=== PATIENT | female | born 1955 | race Caucasian/White ===

== ENCOUNTER 2020-01-04 12:24 | Outpatient (CLI) | payer OTHER, SELFPAY ==
[2020-01-05 14:04] LABS: SARS-CoV-2 RNA PCR Negative
== END 2020-01-04 12:25 | disposition home or self-care (01) ==
LOC: CHSLAB 12:28
PROVIDERS: PCP Family Medicine; Visit Provider Family Medicine
DX: Z20.828 Contact with and (suspected) exposure to other viral communicable diseases (principal)
CPT/HCPCS: 87635; C9803; U0003

== ENCOUNTER → 2020-01-30 06:55 | Outpatient (CLI) | payer OTHER, SELFPAY ==
--- NOTE | ~2020-01-30 | MM_ITS ---
EXAMINATION: MM screening [facility] BI w gunner HISTORY: Screening mammogram TECHNIQUE: Craniocaudal and mediolateral oblique 3-D tomosynthesis images were obtained and synthetic 2-D images were generated. CAD analysis was submitted and interpreted. COMPARISON: 09/05/2009, 03/28/2008 BREAST PARENCHYMAL COMPOSITION: The breasts are almost entirely fatty. FINDINGS: RIGHT BREAST: There is no evidence of suspicious mass, calcification, or architectural distortion to suggest malignancy. There has been no significant interval change. LEFT BREAST: An asymmetry is present in the anterior third of the breast on the craniocaudal view. IMPRESSION: 1. Left breast asymmetry. 2. Additional mammographic views and possible breast ultrasound are recommended. BI-RADS Category 0: Incomplete: Needs additional imaging evaluation. Reviewed, dictated and finalized at location A. WORKER IMPRESSION: 1. Left breast asymmetry. 2. Additional mammographic views and possible breast ultrasound are recommended . BI-RADS Category 0: Incomplete: Needs additional imaging evaluation.
--- NOTE | ~2020-01-30 | DEXA_ITS ---
Bone Density Report Name: Melita Durán Age: 64 Sex: Female Ethnicity: White Date of : 1955 Indication: postmenopausal; screening for osteoporosis; height loss; asthma or emphysema; Referring Provider: AXEL UP Study: Bone densitometry was performed. Exam Date: January 30, 2020 Accession number: [id number] Bone Density: Region BMD T-score Z-score Classification AP Spine (L1-L4) 1.319 2.5 4.2 Normal Femoral Neck (Left) 0.696 -1.4 0.1 Osteopenia Total Hip (Left) 0.910 -0.3 1.0 Normal Femoral Neck (Right) 0.669 -1.6 -0.1 Osteopenia Total Hip (Right) 0.913 -0.2 1.0 Normal Total Hip Mean 0.912 -0.3 1.0 Normal World Health Organization criteria for BMD impression classify patients as: Normal (T-score at or above -1.0), Osteopenia (T-score between -1.0 and -2.5), or Osteoporosis (T-score at or below -2.5). 10-year Fracture Risk(1): Major Osteoporotic Fracture 11% Hip Fracture 1.5% Reported Risk Factors: [place] (), Neck BMD=0.669, BMI=31.8, alcohol use (1) FRAX(R) Version 3.08. Fracture probability calculated for an untreated patient. Fracture probability may be lower if the patient has received treatment. Clinical Information Provided by Patient: Has 3 or more alcoholic drinks per day Has used the following medications: Vitamin D, MTV Has the following medical conditions: Asthma or Emphysema Patient maximum height was 68 Menopause Age: 57 No regular weight bearing exercise Onset of menses at age 10 Number of children 3 Impression: The patient has low bone mass, based on the Right Femoral Neck T-score. The patient has an estimated ten-year risk of hip fracture of 1.5% and an estimated ten-year risk of major fracture of 11%, based on the WHO FRAX algorithm. The patient has risk factors, including: excessive alcohol use. Discussion: BONE DENSITY IS LOW AT ONE OR MORE SKELETAL SITES. This patient's lowest T-score is low at one or more skeletal sites. It meets the World Health Organization's (WHO) criteria for ?low bone mass? (T-score between -1.0 and -2.5). The patient's 10-year risk of fracture as calculated by FRAX is less than the threshold where pharmacological therapy is recommended by the National Osteoporosis Foundation (NOF). However, all treatment decisions require clinical judgment and consideration of individual patient factors, including patient preferences, comorbidities, previous drug use, risk factors not captured in the FRAX model (e.g., frailty, falls, vitamin D deficiency, increased bone turnover, interval significant decline in bone density) and possible under or overestimation of fracture risk by FRAX. The patient should follow a healthful lifestyle (good nutrition with adequate calcium and vitamin D, and appropriate weight-bearing exercise). Casandra
== END ==
PROVIDERS: PCP Family Medicine; Visit Provider Obstetrics & Gynecology Gynecology
DX: Z12.31 Encounter for screening mammogram for malignant neoplasm of breast (principal); Z78.0 Asymptomatic menopausal state; R92.8 Other abnormal and inconclusive findings on diagnostic imaging of breast; M85.852 Other specified disorders of bone density and structure, left thigh; M85.851 Other specified disorders of bone density and structure, right thigh
CPT/HCPCS: 77063; 77067; 77080

== ENCOUNTER → 2020-02-23 08:19 | Outpatient (CLI) | payer OTHER, SELFPAY ==
--- NOTE | ~2020-02-23 | MM_ITS ---
EXAMINATION: MM diagnostic mammo unilat LT HISTORY: Left breast asymmetry on screening mammogram TECHNIQUE: Additional 3-D tomosynthesis images of the left breast were performed and synthetic 2-D im ages were generated. CAD analysis was submitted and interpreted. COMPARISON: 01/30/2020, 09/05/2009, 03/28/2008 FINDINGS: No persistent asymmetry is identified with spot compression of the left breast. There is no suspicious mass, calcification, or architectural distortion. IMPRESSION: 1. No mammographic evidence of malignancy. 2. Recommend routine screening mammography in one year. BI-RADS Category 1: Negative Reviewed, dictated and finalized at location A. VERY HELPER
== END ==
PROVIDERS: PCP Family Medicine; Visit Provider Obstetrics & Gynecology Gynecology
DX: R92.8 Other abnormal and inconclusive findings on diagnostic imaging of breast (principal)
CPT/HCPCS: 77065

== ENCOUNTER 2020-02-23 12:37 | Outpatient (CLI) | payer OTHER, SELFPAY ==
[2020-02-23 12:55] LABS: Basophils Absolute Auto 0.05 K/mm3 (0.00-0.10); Basophils Percent Auto 0.6 % (0.0-1.0); Eosinophils Absolute Auto 0.19 K/mm3 (0.02-0.50); Eosinophils Percent Auto 2.4 % (1.0-6.0); Hematocrit 38.6 % (35.0-42.0); Hemoglobin 12.2 g/dL (11.7-13.8); Immature Granulocyte Absolute 0.04 K/mm3 (0.00-0.00); Immature Granulocyte Percent A 0.5 % (0.0-0.0); Lymphocytes Absolute Auto 2.23 K/mm3 (1.10-4.50); Lymphocytes Percent Auto 28.2 % (18.0-42.0); Mean Corpuscular HGB Conc 31.6 g/dL (32.0-36.0); Mean Corpuscular Volume 88.7 fL (78.0-102.0); Mean Platelet Volume 11.4 fl (9.2-11.8); Monocytes Absolute Auto 0.46 K/mm3 (0.10-0.90); Monocytes Percent Auto 5.8 % (2.0-11.0); Neutrophils Absolute Auto 4.9 K/mm3 (1.7-7.2); Neutrophils Percent Auto 62.5 % (50.0-70.0); Platelet Count Result 283 K/mm3 (150-420); Red Blood Count 4.35 M/mm3 (4.20-5.40); Red Cell Distribution Width 13.4 % (11.6-14.4); White Blood Count 7.9 K/mm3 (4.8-10.8)
[2020-02-23 13:03] LABS: Creatinine Urine 49.79 mg/dL (40-278); MALB Creatinine Ratio 26.1 mg/g (0-30); Microalbumin Urine Random < 13.0 mg/L
[2020-02-23 13:41] LABS: Alanine Aminotransferase 74 U/L (14-59); Albumin Level 4.1 g/dL (3.4-5.0); Alkaline Phosphatase 117 U/L (46-116); Anion Gap 5 mmol/L (8-16); Aspartate Amino Transferase 39 U/L (15-37); Bilirubin,Total 0.4 mg/dL (0.00-1.00); Blood Urea Nitrogen 20 mg/dL (7-18); Calcium 9.3 mg/dL (8.5-10.1); Carbon Dioxide 31 mmol/L (21-32); Chloride 101 mmol/L (98-108); Creatine Kinase 262 U/L (26-192); Estimated Glomerular Filt Rate > 60; Glucose 95 mg/dL (70-99); Osmolality Calculated 286 mOsm/kg (285-295); Potassium 4.4 mmol/L (3.5-5.1); Sodium 137 mmol/L (136-145); Thyroid Stimulating Hormone 2.47 uIU/mL (0.36-3.74); Troponin I 9.3 ng/L (0.00-60.4)
== END 2020-02-23 12:38 | disposition home or self-care (01) ==
PROVIDERS: PCP Family Medicine; Visit Provider Family Medicine
DX: R03.0 Elevated blood-pressure reading, without diagnosis of hypertension (principal); R94.31 Abnormal electrocardiogram [ECG] [EKG]; R00.2 Palpitations
CPT/HCPCS: 36415; 80053; 82043; 82550; 82553; 84443; 84484; 85025; 93225; 93226

== ENCOUNTER → 2020-11-27 07:52 | Outpatient (CLI) | payer MEDICARE, OTHER, SELFPAY ==
--- NOTE | ~2020-11-27 | MMUS_ITS ---
EXAMINATION: MM diagnostic addy LT w gunner, US breast LT limited HISTORY: Palpable left breast abnormality TECHNIQUE: Additional 3-D tomosynthesis images of the left breast were performed and synthetic 2-D im ages were generated. CAD analysis was submitted and interpreted. High resolution Limited left breast ultrasound was performed. COMPARISON: Comparison to multiple prior studies sequentially, with oldest reviewed study dated 10/16. BREAST PARENCHYMAL COMPOSITION: Breast composed of scattered areas of fibroglandular density. FINDINGS: MAMMOGRAPHIC FINDINGS: There are no suspicious masses, calcifications or architectural distortion in the left breast to sugg est malignancy. ULTRASOUND: Limited left breast ultrasound: At 2-3 o'clock in the area of palpable concern there is a 8 mm cyst. No suspicious masses to suggest malignancy. IMPRESSION: 1. No mammographic or sonographic evidence for malignancy in the left breast. 8 mm cyst corresponds t o the palpable abnormality. 2. Routine yearly screening mammogram and regular clinical breast examination are recommended. BI-RADS Category 2: Benign finding(s). Reviewed, dictated and finalized at location A. IMPRESSION: 1. No mammographic or sonographic evidence for malignancy in the left breast. 8 mm cyst corresponds to the palpable abnormality. 2. Routine yearly screening mammogram and regular clinical breast examination a re recommended. BI-RADS Category 2: Benign finding(s).
== END ==
PROVIDERS: Visit Provider Obstetrics & Gynecology Gynecology
DX: N64.4 Mastodynia (principal)
CPT/HCPCS: 76642; 77061; 77065; G0279

== ENCOUNTER 2021-03-22 01:24 | Day surgery (SDC) | payer MEDICARE, OTHER, SELFPAY ==
[2021-03-12 16:08] VITALS: BMI 30.4
--- NOTE | 2021-03-21 16:24 | WPDANESEPP ---
Anes - Eval Pre Procedure Procedure: Operation Date: 03/22/21 08:30 Proposed Procedures p Screening Colonoscopy - Cholo Latham MD Date/Time: 03/21/21 16:24 Pre Op Diagnosis: family hx of colon ca Patient Data Age: 65 Gender: F Height: 1.73 m Weight: 91 kg Allergies Allergy/AdvReac Type Severity Reaction Status Date / Time No Known Allergies Allergy Verified 12/03/20 09:35 Home Medications Medication Instructions Recorded Confirmed Type aspirin 81 mg tablet,delayed 81 mg PO DAILY 03/08/19 03/12/21 History release magnesium oxide 400 mg PO DAILY 03/08/19 03/12/21 History multivitamin with iron-mineral 1 tablet PO DAILY 03/08/19 03/12/21 History omeprazole 40 mg capsule,delayed 40 mg PO DAILY 03/08/19 03/12/21 History release paroxetine HCl 10 mg tablet 10 mg PO DAILY 01/30/20 03/12/21 History inhalational spacing device #10 ea 08/30/20 12/03/20 Rx losartan 25 mg tablet 25 mg PO DAILY 12/03/20 03/12/21 History tiotropium bromide 2.5 See Rx Instructions .ROUTE 01/22/21 03/12/21 Rx mcg/actuation mist for inhalation .COMPLEX #4 gram ergocalciferol (vitamin D2) 03/12/21 History fluticasone propionate [Flovent INHALATION 03/12/21 History HFA] Patient hx anesthesia problems: none Family hx anesthesia problems: none Results Review: All pre-operative results and documents have been reviewed as part of the pre-operative evaluation. [facility] Past Medical History Medical History (Updated 03/21/21 @ 16:26 by Margaret Jean-Baptiste CRNA) Arthritis Back pain Gastroesophageal reflux disease HTN (hypertension) Mild asthma Surgical History Surgical History (Updated 03/21/21 @ 16:26 by Margaret Jean-Baptiste CRNA) History of partial hysterectomy S/P cervical spinal fusion S/P rotator cuff surgery Family History Family History Other Carcinoma of colon Social History Social History Smoking packs per day: 0.5 Smoking cigarettes per day: 10.0 Years smoked: 20 Smoking pack-years: 10.00 Smoking status: Former smoker Tobacco type: cigarettes Smoking end date: 02/16/87 Alcohol intake: current Drinks per week: 14 Substance use: unknown Spiritual care concerns: No Exam Day of Procedure 03/21/21 16:24
[2021-03-22] MEDS: LACTATED RINGERS 1,000 ML 150 ML IV CONT (07:29)
[2021-03-22 07:32] VITALS: BP 150/75; PULSE 85; RESP 18; TEMP 36.3; O2SAT 98
--- NOTE | 2021-03-22 08:00 | WPDANESEFPP ---
Anes - Eval Final PreProcedure Day of Procedure 03/22/21 08:00 Patient weight: obese Heart: regular rate and rhythm Lungs: clear to auscultation Airway: Mallampati scale class II Neurological: alert and oriented Last oral intake: >/= 8 hours ASA classification: III Emergent: no Anesthetic plan: proceed Anesthesia type and monitoring: general GIVS and standard monitoring Results Review: All pre-operative results and documents have been reviewed as part of the pre-operative evaluation. Informed Consent: The patient's anesthetic plan and its attendant risks and benefits were discussed with the patient/family/POA. Questions were solicited and answers provided to the satisfaction of the patient/family/POA.
--- NOTE | 2021-03-22 08:13 | PM.HPGS ---
History of Present Illness History of Present Illness Consent: Risks, benefits, and alternatives have been discussed and questions answered. Patient agrees to proceed with procedure. Chief complaint: family hx of colon ca Narrative: Melita Durán is a 65 year old female with last colonoscopy ~ 4 years ago, mother had colon cancer. Review of Systems Constitutional: Constitutional: Denies headache(s) and Denies weakness Eyes: Eyes: Denies blurry vision ENT: Reports Normal hearing present, Denies headache(s) and Denies neck pain Cardiovascular: Cardiovascular: Denies chest pain and Denies dyspnea Respiratory: Respiratory: Denies dyspnea Gastrointestinal: Gastrointestinal: Reports no additional gastrointestinal complaints Genitourinary: Genitourinary: Denies dysuria Musculoskeletal: Musculoskeletal: Denies neck pain Integumentary/Breasts: Skin/Breast: Denies dry skin Neurologic: Reports Normal hearing present, Denies headache(s) and Denies weakness Psychiatric: Psychiatric: Denies anxiety Endocrine: Endocrine: Denies change in body appearance Hematologic/Lymphatic: Hematologic/Lymphatic: Denies easy bleeding Allergic/Immunologic: Allergic/Immunologic: Denies urticaria PMFSH Past Medical History Medical History (Updated 03/22/21 @ 08:14 by Cholo Latham MD) Arthritis Back pain Family history of colon cancer in mother Gastroesophageal reflux disease HTN (hypertension) Mild asthma Surgical History Surgical History (Updated 03/21/21 @ 16:26 by Margaret Jean-Baptiste CRNA) History of partial hysterectomy S/P cervical spinal fusion S/P rotator cuff surgery Family History Family History Other Carcinoma of colon Social History Social History Smoking packs per day: 0.5 Smoking cigarettes per day: 10.0 Years smoked: 20 Smoking pack-years: 10.00 Smoking status: Former smoker Tobacco type: cigarettes Smoking end date: 02/16/87 Alcohol intake: current Drinks per week: 14 Substance use: unknown Living arrangements: with family Spiritual care concerns: No Meds Home Medications and Allergies Home Medications Medication Instructions Recorded Confirmed Type aspirin 81 mg tablet,delayed 81 mg PO DAILY 03/08/19 03/12/21 History release magnesium oxide 400 mg PO DAILY 03/08/19 03/12/21 History multivitamin with iron-mineral 1 tablet PO DAILY 03/08/19 03/12/21 History omeprazole 40 mg capsule,delayed 40 mg PO DAILY 03/08/19 03/12/21 History release paroxetine HCl 10 mg tablet 10 mg PO DAILY 01/30/20 03/12/21 History inhalational spacing device #10 ea 08/30/20 12/03/20 Rx losartan 25 mg tablet 25 mg PO DAILY 12/03/20 03/12/21 History tiotropium bromide 2.5 See Rx Instructions .ROUTE 01/22/21 03/12/21 Rx mcg/actuation mist for inhalation .COMPLEX #4 gram ergocalciferol (vitamin D2) 03/12/21 History fluticasone propionate [Flovent INHALATION 03/12/21 History HFA] Allergies Allergy/AdvReac Type Severity Reaction Status Date / Time latex Allergy Redness of Verified 03/22/21 07:32 Skin Vital Signs Vital Signs - 24 hr 03/22/21 07:32 Temperature 97.3 F L Pulse Rate 85 Respiratory Rate 18 Blood Pressure 150/75 H Pulse Oximetry 98 Exam Const: General: comfortable and no acute distress HENMT: General nose exam: Normal nares present Eyes: General: appearance normal, both eyes and all related structures Neck: Neck: no JVD Resp: Auscultation: clear to auscultation bilaterally Cardio: Rate: regular rate Rhythm: regular rhythm GI: Inspection: non-distended GI Palp: Yes Soft to palpation Skin: General skin exam: normal color Neuro: General: gait normal Speech: normal speech Extrem: General: normal to inspection Psych: Mental Status: mental status grossly normal Assessment and Plan Assessment and pl
[2021-03-22 08:37] VITALS: BP 144/70; PULSE 73; RESP 19; O2SAT 98
[2021-03-22 08:47] VITALS: BP 125/62; PULSE 74; RESP 11; O2SAT 99
[2021-03-22 08:59] VITALS: BP 144/70; PULSE 71; RESP 20; O2SAT 99
== END 2021-03-22 09:15 | disposition home or self-care (01) ==
PROVIDERS: PCP Family Medicine; Visit Provider Internal Medicine Gastroenterology
PROC: 0DJD8ZZ Inspection of Lower Intestinal Tract, Via Natural or Artificial Opening Endoscopic (ICD-10-PCS; CPT 45378; principal; 2021-03-22 08:30)
DX: Z12.11 Encounter for screening for malignant neoplasm of colon (principal); D12.2 Benign neoplasm of ascending colon; K63.5 Polyp of colon; K57.30 Diverticulosis of large intestine without perforation or abscess without bleeding; K64.8 Other hemorrhoids; Z80.0 Family history of malignant neoplasm of digestive organs; I10 Essential (primary) hypertension; J45.909 Unspecified asthma, uncomplicated; K21.9 Gastro-esophageal reflux disease without esophagitis; Z79.82 Long term (current) use of aspirin; Z79.51 Long term (current) use of inhaled steroids; Z98.1 Arthrodesis status; Z87.891 Personal history of nicotine dependence
CPT/HCPCS: 45385; 88305; J2704; J7120

== ENCOUNTER → 2021-06-07 15:59 | Outpatient (CLI) | payer MEDICARE, OTHER, SELFPAY ==
--- NOTE | ~2021-06-07 | MM_ITS ---
EXAMINATION: MM screening [facility] BI w gunner HISTORY: Screening TECHNIQUE: Craniocaudal and mediolateral oblique 3-D tomosynthesis images were obtained and synthetic 2-D images were generated. CAD analysis was submitted and interpreted. COMPARISON: Comparison to multiple prior studies sequentially, with oldest reviewed study dated 10/16. BREAST PARENCHYMAL COMPOSITION: The breasts are almost entirely fatty. FINDINGS: There is a new mass inferiorly in the right breast on MLO view, most posterior margin. The left breast is stable without evidence for malignancy. IMPRESSION: 1. New right breast mass inferiorly and posteriorly seen on MLO view only. 2. Additional mammographic views and possible breast ultrasound are recommended. BI-RADS Category 0: Incomplete: Needs additional imaging evaluation. Reviewed, dictated and finalized at location A. IMPRESSION: 1. New right breast mass inferiorly and posteriorly seen on MLO view only. 2. Additional mammographic views and possible breast ultrasound are recommended . BI-RADS Category 0: Incomplete: Needs additional imaging evaluation.
== END ==
PROVIDERS: PCP Family Medicine; Visit Provider Obstetrics & Gynecology Gynecology
DX: Z12.31 Encounter for screening mammogram for malignant neoplasm of breast (principal); R92.8 Other abnormal and inconclusive findings on diagnostic imaging of breast
CPT/HCPCS: 77063; 77067

== ENCOUNTER → 2021-06-19 08:20 | Outpatient (CLI) | payer MEDICARE, OTHER, SELFPAY ==
--- NOTE | ~2021-06-19 | MM_ITS ---
EXAMINATION: MM diagnostic addy RT w gunner HISTORY: New posteriorly inferior right breast mass seen on screening MLO view of June 07, 2021 TECHNIQUE: Rolled medial craniocaudal and coned compression MLO views of the skin mole with skin sabina er at the lower posterior medial aspect of the breast were performed and synthetic 2-D images were ge nerated. CAD analysis was submitted and interpreted. COMPARISON: June 07, 2021 bilateral screening mammogram FINDINGS: The small masses reported on June 07, 2021 MLO screening view is circumscribed, measuring approximately 3.8 x 6 mm, corresponding to a skin marker at a skin mole IMPRESSION: 1. Skin mole accounts for opaque density noted on June 07, 2021 MLO screening view; no mammographic evidence of malignancy 2. Routine mammographic screening is recommended. BI-RADS Category 2: Benign finding(s). Reviewed, dictated and finalized at location A.
== END ==
PROVIDERS: PCP Family Medicine; Visit Provider Obstetrics & Gynecology Gynecology
DX: R92.8 Other abnormal and inconclusive findings on diagnostic imaging of breast (principal)
CPT/HCPCS: 77061; 77065; G0279

== ENCOUNTER 2022-06-16 15:09 | Outpatient (CLI) | payer MEDICARE, OTHER, SELFPAY ==
--- NOTE | ~2022-06-16 | XR_ITS ---
EXAMINATION: XR chest 2V Exam Date/Time: 06/16/2022 15:35 CDT HISTORY: PRODUCTIVE COUGH 2 WEEKS. SOB WITH ACUTE COUGHING. Comparison: 08/26/2018. RESULT: Lines, tubes, and devices: ACDF. Bilateral humeral head soft tissue anchors. Lungs and pleura: Clear. Cardiomediastinal silhouette: Stable. Other: No acute osseous or upper abdominal finding. IMPRESSION: No acute cardiopulmonary process. Reviewed, dictated and finalized at location K.
== END 2022-06-16 15:10 | disposition home or self-care (01) ==
LOC: CHSIMG 15:10
PROVIDERS: PCP Family Medicine; Visit Provider Family Medicine
DX: R05.2 Subacute cough (principal)
CPT/HCPCS: 71046

== ENCOUNTER → 2022-10-14 15:35 | Outpatient (CLI) | payer MEDICARE, OTHER, SELFPAY ==
--- NOTE | ~2022-10-14 | MM_ITS ---
EXAMINATION: MM screening [facility] BI w gunner HISTORY: Screening mammogram TECHNIQUE: Craniocaudal and mediolateral oblique 3-D tomosynthesis images were obtained and synthetic 2-D images were generated. CAD analysis was submitted and interpreted. COMPARISON: 06/07/2021, 11/27/2020, 01/30/2020 BREAST PARENCHYMAL COMPOSITION:The breasts are almost entirely fatty FINDINGS: Small bilateral circumscribed low-density nodules are stable from prior exam. No suspicious mass, calcification, or architectural distortion are identified in either breast to suggest malignan cy. There has been no suspicious interval change. IMPRESSION: No mammographic evidence of malignancy. Recommend routine screening mammography in one year. BI-RADS Category 2: Benign finding(s). Reviewed, dictated and finalized at location .
--- NOTE | ~2022-10-14 | DEXA_ITS ---
Bone Density Report Name: ALISON CRAIG Age: 66 Sex: Female Ethnicity: White Date of : 1955 Indication: postmenopausal; screening for osteoporosis; height loss; asthma or emphysema; Referring Provider: AXEL UP Study: Bone densitometry was performed. Exam Date: October 14, 2022 Accession number: [id number] Bone Density: Region BMD T-score Z-score Classification AP Spine (L1, L4) 1.210 1.6 3.5 Normal Femoral Neck (Left) 0.702 -1.3 0.3 Osteopenia Total Hip (Left) 0.934 -0.1 1.3 Normal Femoral Neck (Right) 0.669 -1.6 0.0 Osteopenia Total Hip (Right) 0.912 -0.2 1.1 Normal Total Hip Mean 0.923 -0.2 1.2 Normal World Health Organization criteria for BMD impression classify patients as: Normal (T-score at or above -1.0), Osteopenia (T-score between -1.0 and -2.5), or Osteoporosis (T-score at or below -2.5). 10-year Fracture Risk(1): Major Osteoporotic Fracture 9.2% Hip Fracture 1.2% Reported Risk Factors: [place] (), Neck BMD=0.669, BMI=33.7 (1) FRAX(R) Version 3.08. Fracture probability calculated for an untreated patient. Fracture probability may be lower if the patient has received treatment. Previous Exams: Region Exam Age BMD T-score BMD Change BMD Change Date g/cm2 vs Baseline vs Previous AP Spine(L1, L4) 10/14/2022 66 1.210 1.6 -0.085* -0.085* 01/30/2020 64 1.294 2.3 Total Hip(Left) 10/14/2022 66 0.934 -0.1 0.024 0.024 01/30/2020 64 0.910 -0.3 Total Hip(Right) 10/14/2022 66 0.912 -0.2 0.000 0.000 01/30/2020 64 0.913 -0.2 *Denotes significance at 95% confidence level, LSC for AP Spine = 0.022 g/cm2, LSC for Total Hip = 0.027 g/cm2 Clinical Information Provided by Patient: Has used the following medications: Vitamin D, MTV Has the following medical conditions: Asthma or Emphysema Patient maximum height was 68 Menopause Age: 57 No regular weight bearing exercise Onset of menses at age 10 Number of children 3 Impression: The patient has low bone mass, based on the Right Femoral Neck T-score. The patient has an estimated ten-year risk of hip fracture of 1.2% and an estimated ten-year risk of major fracture of 9.2%, based on the WHO FRAX algorithm. The BMD for the AP Spine(L1, L4) decreased, changing by -0.085 since the last DXA exam. Discussion: BONE DENSITY IS LOW AT ONE OR MORE SKELETAL SITES. This patient's lowest T-score
== END ==
PROVIDERS: PCP Obstetrics & Gynecology Gynecology; Visit Provider Obstetrics & Gynecology Gynecology
DX: Z12.31 Encounter for screening mammogram for malignant neoplasm of breast (principal); Z78.0 Asymptomatic menopausal state; M85.852 Other specified disorders of bone density and structure, left thigh; M85.851 Other specified disorders of bone density and structure, right thigh
CPT/HCPCS: 77063; 77067; 77080

== ENCOUNTER 2022-12-19 11:10 | Outpatient (CLI) | payer MEDICARE, OTHER, SELFPAY ==
[2022-12-19 11:58] LABS: SARS-CoV-2 RNA PCR Negative (Negative)
== END 2022-12-19 11:11 | disposition home or self-care (01) ==
LOC: CHSLAB 11:12
PROVIDERS: PCP Family Medicine; Visit Provider Family Medicine
DX: J06.9 Acute upper respiratory infection, unspecified (principal); Z20.822 Contact with and (suspected) exposure to COVID-19
CPT/HCPCS: 87635

== ENCOUNTER 2023-01-20 02:05 | Day surgery (SDC) | payer MEDICARE, OTHER, SELFPAY ==
[2023-01-05 10:35] VITALS: BMI 31.4
--- NOTE | 2023-01-16 11:41 | SUR.PREOP ---
Patient called regarding upcoming procedure. Reviewed preop instructions, appointment times, and procedure prep.
[2023-01-20 06:21] VITALS: BP 153/81; PULSE 72; RESP 16; TEMP 36.1; O2SAT 96; BMI 34.0
[2023-01-20] MEDS: LACTATED RINGERS 1,000 ML 150 ML IV CONT (06:29)
--- NOTE | 2023-01-20 07:22 | WPDANESEPPF ---
Anes - Initial Pre Proc Eval Procedure: Operation Date: 01/20/23 07:30 Proposed Procedures p Esophagogastroduodenoscopy - Cholo Latham MD Date/Time: 01/20/23 07:22 Surgeon: Cholo Latham MD Pre Op Diagnosis: GERD, Dysphagia Patient Data Age: 67 Gender: F Height: 1.7 m Weight: 98.7 kg Last Vital Signs Temp 97 F L 01/20/23 06:21 Pulse 72 01/20/23 06:21 Resp 16 01/20/23 06:21 BP 153/81 H 01/20/23 06:21 Pulse Ox 96 01/20/23 06:21 O2 Del Method Room Air 01/20/23 06:21 Allergies Allergy/AdvReac Type Severity Reaction Status Date / Time latex AdvReac Redness of Verified 01/20/23 06:17 Skin Home Medications Medication Instructions Recorded Confirmed Type aspirin 81 mg tablet,delayed 81 mg PO DAILY 03/08/19 01/20/23 History release magnesium oxide 400 mg PO DAILY 03/08/19 01/20/23 History multivitamin with iron-mineral 1 tablet PO DAILY 03/08/19 01/20/23 History ergocalciferol (vitamin D2) 1,250 1,250 mcg PO WEEKLY 03/12/21 01/20/23 History mcg (50,000 unit) capsule metoprolol succinate 25 mg 25 mg PO DAILY 11/22/21 01/20/23 History tablet,extended release 24 hr paroxetine HCl 10 mg tablet 10 mg PO DAILY 11/22/21 01/20/23 History fluticasone propionate 50 1 spray intranasal DAILY 06/02/22 01/20/23 History mcg/actuation nasal spray,suspension loratadine 10 mg tablet 10 mg PO DAILY 06/02/22 01/20/23 History losartan 100 1 tablet PO DAILY 06/24/22 01/20/23 History mg-hydrochlorothiazide 25 mg tablet Trelegy Ellipta 100 mcg-62.5 1 inh inhalation DAILY #180 ea 11/19/22 01/20/23 Rx mcg-25 mcg powder for inhalation (yizrelmigxv-itveepqio-keyvtpcm) albuterol sulfate 90 mcg/actuation 1 - 2 puff inhalation Q4-6H PRN 11/19/22 01/20/23 Rx aerosol inhaler shortness of breath or wheezing #8.5 grams naproxen sodium 220 mg capsule 220 mg PO DAILY 01/05/23 01/20/23 History omeprazole 20 mg capsule,delayed 20 mg PO DAILY 01/05/23 01/20/23 History release Patient hx anesthesia problems: none Family hx anesthesia problems: none Results Review: All pre-operative results and documents have been reviewed as part of the pre-operative evaluation. [facility] Past Medical History Medical History (Updated 12/04/22 @ 10:08 by Cholo Latham MD) Adenomatous colon polyp Arthritis Back pain Family history of colon cancer in mother Gastroesophageal reflux disease HTN (hypertension) Mild asthma Surgical History Surgical History (Updated 12/04/22 @ 10:08 by Cholo Latham MD) History of partial hysterectomy S/P cervical spinal fusion S/P rotator cuff surgery Family History Family History Other Carcinoma of colon Social History Social History Social History: Caffeine-none Smoking packs per day: 0.5 Smoking cigarettes per day: 10.0 Years smoked: 20 Smoking pack-years: 10.00 Smoking status: Former smoker Tobacco type: cigarettes Smoking end date: 02/16/87 Alcohol intake: current Drinks per week: 14 Substance use: unknown Substance use type: does not use Lack of Transportation: No Lack of Food: Never True Current Housing: I Have Housing Concerned About Future Housing: No Difficulty Paying Gas/Electric Bills: No Difficulty Paying for Meds: No Currently Unemployed: No Education: Trade/Vocational Certificate Difficulty w/ Childcare or Family Care: No Living arrangements: with family Spiritual care concerns: No Anes - Eval Final PreProcedure Day of Procedure 01/20/23 07:22 Patient weight: obese Heart: regular rate and rhythm Lungs: clear to auscultation Airway: Mallampati scale class II Neurological: alert and oriented Last oral intake: >/= 8 hours ASA classification: III Emergent: no Anesthetic plan: proceed Anesthesia type and m
--- NOTE | 2023-01-20 07:25 | PM.HPGS ---
History of Present Illness History of Present Illness Consent: Risks, benefits, and alternatives have been discussed and questions answered. Patient agrees to proceed with procedure. Chief complaint: GERD, Dysphagia Narrative: Melita Durán is a 67 year old female here for egd, she has h/o gerd on omeprazole, never had EGD. Also copd and cough, she has seeing pulmonary and most recently ENT. She has been having issues after eating with sensation that sometimes large meals could get stuck in neck (had c-spine surgery in the past) and had Heimlich maneuver x2 Review of Systems Constitutional: Constitutional: Denies headache(s) and Denies weakness Eyes: Eyes: Denies blurry vision ENT: Reports Normal hearing present, Denies headache(s) and Denies neck pain Cardiovascular: Cardiovascular: Denies chest pain and Denies dyspnea Respiratory: Respiratory: Denies dyspnea Gastrointestinal: Gastrointestinal: Reports no additional gastrointestinal complaints Genitourinary: Genitourinary: Denies dysuria Musculoskeletal: Musculoskeletal: Denies neck pain Integumentary/Breasts: Skin/Breast: Denies dry skin Neurologic: Reports Normal hearing present, Denies headache(s) and Denies weakness Psychiatric: Psychiatric: Denies anxiety Endocrine: Endocrine: Denies change in body appearance Hematologic/Lymphatic: Hematologic/Lymphatic: Denies easy bleeding Allergic/Immunologic: Allergic/Immunologic: Denies urticaria PMFSH Past Medical History Medical History (Updated 12/04/22 @ 10:08 by Cholo Latham MD) Adenomatous colon polyp Arthritis Back pain Family history of colon cancer in mother Gastroesophageal reflux disease HTN (hypertension) Mild asthma Surgical History Surgical History (Updated 12/04/22 @ 10:08 by Cholo Latham MD) History of partial hysterectomy S/P cervical spinal fusion S/P rotator cuff surgery Family History Family History Other Carcinoma of colon Social History Social History Social History: Caffeine-none Smoking packs per day: 0.5 Smoking cigarettes per day: 10.0 Years smoked: 20 Smoking pack-years: 10.00 Smoking status: Former smoker Tobacco type: cigarettes Smoking end date: 02/16/87 Alcohol intake: current Drinks per week: 14 Substance use: unknown Substance use type: does not use Lack of Transportation: No Lack of Food: Never True Current Housing: I Have Housing Concerned About Future Housing: No Difficulty Paying Gas/Electric Bills: No Difficulty Paying for Meds: No Currently Unemployed: No Education: Trade/Vocational Certificate Difficulty w/ Childcare or Family Care: No Living arrangements: with family Spiritual care concerns: No Meds Home Medications and Allergies Home Medications Medication Instructions Recorded Confirmed Type aspirin 81 mg tablet,delayed 81 mg PO DAILY 03/08/19 01/20/23 History release magnesium oxide 400 mg PO DAILY 03/08/19 01/20/23 History multivitamin with iron-mineral 1 tablet PO DAILY 03/08/19 01/20/23 History ergocalciferol (vitamin D2) 1,250 1,250 mcg PO WEEKLY 03/12/21 01/20/23 History mcg (50,000 unit) capsule metoprolol succinate 25 mg 25 mg PO DAILY 11/22/21 01/20/23 History tablet,extended release 24 hr paroxetine HCl 10 mg tablet 10 mg PO DAILY 11/22/21 01/20/23 History fluticasone propionate 50 1 spray intranasal DAILY 06/02/22 01/20/23 History mcg/actuation nasal spray,suspension loratadine 10 mg tablet 10 mg PO DAILY 06/02/22 01/20/23 History losartan 100 1 tablet PO DAILY 06/24/22 01/20/23 History mg-hydrochlorothiazide 25 mg tablet Trelegy Ellipta 100 mcg-62.5 1 inh inhalation DAILY #180 ea 11/19/22 01/20/23 Rx mcg-25 mcg powder for inhalation ([id number]) albuterol sulfate 90 mcg/actuation 1 - 2 p
[2023-01-20 07:42] VITALS: BP 149/73; PULSE 72; RESP 22; O2SAT 96
[2023-01-20 07:52] VITALS: BP 134/70; PULSE 70; RESP 18; O2SAT 97
[2023-01-20 08:02] VITALS: BP 132/76; PULSE 66; RESP 18; O2SAT 98
== END 2023-01-20 08:05 | disposition home or self-care (01) ==
PROVIDERS: PCP Family Medicine; Visit Provider Internal Medicine Gastroenterology
PROC: 0DJ08ZZ Inspection of Upper Intestinal Tract, Via Natural or Artificial Opening Endoscopic (ICD-10-PCS; CPT 43235; principal; 2023-01-20 07:30)
DX: K21.00 Gastro-esophageal reflux disease with esophagitis, without bleeding (principal); K29.50 Unspecified chronic gastritis without bleeding; I10 Essential (primary) hypertension; J45.909 Unspecified asthma, uncomplicated; E66.9 Obesity, unspecified; Z68.34 Body mass index [BMI] 34.0-34.9, adult; Z98.890 Other specified postprocedural states; Z79.82 Long term (current) use of aspirin; Z79.51 Long term (current) use of inhaled steroids; Z79.1 Long term (current) use of non-steroidal anti-inflammatories (NSAID); Z87.891 Personal history of nicotine dependence; Z86.010 Personal history of colon polyps; Z80.0 Family history of malignant neoplasm of digestive organs
CPT/HCPCS: 43239; 43450; 88305; J2704; J7120

== ENCOUNTER 2023-10-01 12:53 | Outpatient (RCR) | payer MEDICARE, OTHER, SELFPAY ==
--- NOTE | 2023-10-01 14:16 | OPREHPOC ---
Outpatient Therapy Plan of Care This is a Multidisciplinary Plan of Care that may contain components documented by all disciplines (PT, OT, and ST.) PT Problem 1 PT Problem #1 Knowledge Deficit PT Goal 1 Goal The patient will be independent in a home exercise program. Target Visit 2 PT Problem 2 PT Problem #2 Pain PT Goal 1 Goal The patient will report no greater than 3/10 neck pain with bathing and grooming activities. Target Visit 6 PT Problem 3 PT Problem #3 Impaired Functional Mobil PT Goal 1 Goal 1.The patient will demonstrate 10% or less self perceived disability per the Neck Index. 2. The patient will lift 10# from waist to shoulder without an increase in neck pain to return to lifting daily items. Target Visit 6 PT Problem 4 PT Problem #4 Impaired Range of Motion PT Goal 1 Goal The patient will demonstrate 70 degrees of cervical rotation bilaterally without increased pain noted to improve ability to drive. Target Visit 6
--- NOTE | 2023-10-01 14:16 | PTOPEVAL1 ---
Assessment and note entered by Josephine Ugalde, PT Evaluation Information Assessment Status Evaluation ICD-10 Condition Codes (PT) Cervicalgia M54.2 Other ICD-10 Condition Codes ( M79.18, M43.22, M50.30, M47.9 PT) Subjective Information Lou Durán reports she had a cyst removed on her left upper back/lower neck in April 2023 . She has noted increased pain and stiffness in her neck since then. She has good and bad days but sometimes it feels really tight along the muscles around where the cyst was removed. She had 4 trigger point injections on 09/16/23 that helped right away but then the pain returned after traveling. She traveled about 1 week ago and was wearing a backpack which irritated the pain. She also notes some difficulty brushing her hair and turning her head. She does use heat occasionally to help with pain and stiffness which provides temporary relief. She has a history of a cervical fusion of 2 levels about 15 years ago as well as bilateral rotator cuff repairs prior to the cervical fusion. Reported Pain Level Pain Score 3: Self Report Assessment PT Clinical Summary Melita Durán presents with chronic neck pain and has a history of a cervical fusion performed approximately 15 years ago. She had a cyst removed from her left lower cervical spine in April 2023 and since then she has been having more pain and stiffness. She is having difficulty with lifting, turning her head, and brushing her hair when symptoms are elevated. She objectively demonstrates tenderness and tension in the left cervical paraspinals, upper trap, and levator scapulae muscles; decreased cervical AROM; impaired upper trunk posture; bilateral shoulder weakness; and decreased functional abilities. She will benefit from skilled PT to address these limitations. Plan of Care Interventions Electrical Stimulation,Hot Pack/Cold Pack,Manual Therapy,Neuro Re-education,Patient/Caregiver Educati,Therapeutic Activities,Therapeutic Exercise PT Services Indicated Yes Treatment Frequency and 2 times per week for 6 visits Duration These treatments will address the objective and functional deficits as defined above. The patient will be advanced safely and appropriately in order for the patient to progress towards his/her prior level of function. Additional exercises will be introduced and as well as a comprehensive ho
--- NOTE | 2023-10-28 10:14 | OPREHPOC ---
Outpatient Therapy Plan of Care This is a Multidisciplinary Plan of Care that may contain components documented by all disciplines (PT, OT, and ST.) PT Problem 1 PT Problem #1 Knowledge Deficit PT Goal 1 Goal / Goal Update The patient will be independent in a home exercise program. Target Visit 2 Progress Met PT Problem 2 PT Problem #2 Pain PT Goal 1 Goal / Goal Update The patient will report no greater than 3/10 neck pain with bathing and grooming activities. Target Visit 6 Progress Met PT Problem 3 PT Problem #3 Impaired Functional Mobil PT Goal 1 Goal / Goal Update 1.The patient will demonstrate 10% or less self perceived disability per the Neck Index. -not met 2. The patient will lift 10# from waist to shoulder without an increase in neck pain to return to lifting daily items. -met Target Visit 6 Progress Partially Met PT Problem 4 PT Problem #4 Impaired Range of Motion PT Goal 1 Goal / Goal Update The patient will demonstrate 70 degrees of cervical rotation bilaterally without increased pain noted to improve ability to drive. -met on right, progress towards on left Target Visit 6 Progress Partially Met
--- NOTE | 2023-10-28 10:14 | PTOPDC ---
Assessment and note entered by Josephine Ugalde, PT Evaluation Information Assessment Status Discharge ICD-10 Condition Codes (PT) Cervicalgia M54.2 Other ICD-10 Condition Codes ( M79.18, M43.22, M50.30, M47.9 PT) Onset 09/16/23 Subjective Information Lou Durán reports that her neck has been feeling better and less stiff. She has been stretching at home and using her bands. She will be leaving for [place] next week and will be there for 3 weeks. She will call Dr. Sanchez if her pain returns or worsens while she is out of town. Reported Pain Level Pain Score 2: Self Report Assessment PT Clinical Summary Melita Durán has completed 6 skilled PT visits for chronic neck pain. She is reporting less pain and stiffness overall. She feels she can perform all daily and recreational activities at this time without limitation. She objectively demonstrates less tenderness in the left cervical and periscapular region and improved cervical AROM. She is independent in a home program to continue for flexibility, posture, and strength. She will be discharged from skilled PT. Plan of Care PT Services Indicated No
== END 2023-10-28 13:03 | disposition home or self-care (01) ==
LOC: CHSPT 12:53
PROVIDERS: Visit Provider Physical Medicine & Rehabilitation
DX: M50.30 Other cervical disc degeneration, unspecified cervical region (principal); M79.18 Myalgia, other site; M43.22 Fusion of spine, cervical region; M47.9 Spondylosis, unspecified
CPT/HCPCS: 97014; 97110; 97140; 97161; G0283

== ENCOUNTER 2023-10-28 08:24 | Outpatient (CLI) | payer MEDICARE, OTHER, SELFPAY ==
--- NOTE | ~2023-10-28 | MM_ITS ---
EXAMINATION: MM screening addy BI w gunner HISTORY: Screening mammogram TECHNIQUE: Craniocaudal and mediolateral oblique 3-D tomosynthesis images were obtained and synthetic 2-D images were generated. CAD analysis was submitted and interpreted. COMPARISON: 10/14/2022, 06/19/2021, 06/07/2021, 02/23/2020 BREAST PARENCHYMAL COMPOSITION:Not Dense. The breasts are almost entirely fatty FINDINGS: No suspicious mass, calcification, or architectural distortion are identified in either jessica ast to suggest malignancy. There has been no suspicious interval change. IMPRESSION: No mammographic evidence of malignancy. Recommend routine screening mammography in one year. BI-RADS Category 1: Negative Reviewed, dictated and finalized at location .
== END 2023-10-28 08:25 | disposition home or self-care (01) ==
LOC: CHSIMG 08:27
PROVIDERS: PCP Family Medicine; Visit Provider Obstetrics & Gynecology Gynecology
DX: Z12.31 Encounter for screening mammogram for malignant neoplasm of breast (principal)
CPT/HCPCS: 77063; 77067

== ENCOUNTER 2024-08-05 10:14 | Outpatient (CLI) | payer MEDICARE, SELFPAY ==
[2024-08-05 11:13] LABS: Anion Gap 6 mmol/L (4-12); Blood Urea Nitrogen 17 mg/dL (7-17); Calcium 8.9 mg/dL (8.4-10.2); Carbon Dioxide 29 mmol/L (22-30); Chloride 99 mmol/L (98-107); Estimated Glomerular Filt Rate > 60; Glucose 93 mg/dL (65-110); Potassium 3.9 mmol/L (3.4-5.0); Sodium 134 mmol/L (137-145)
== END 2024-08-05 10:15 | disposition home or self-care (01) ==
LOC: ANHSURGERY 10:20
PROVIDERS: Anesthesiology; PCP Family Medicine; Visit Provider Obstetrics & Gynecology Gynecology
DX: Z01.812 Encounter for preprocedural laboratory examination (principal); Z79.899 Other long term (current) drug therapy
CPT/HCPCS: 36415; 80048

== ENCOUNTER 2024-08-08 00:57 | Day surgery (SDC) | payer MEDICARE, SELFPAY ==
[2024-08-02 08:44] VITALS: BMI 29.7
--- NOTE | 2024-08-02 08:53 | PC.NURSE ---
Report to the Outpatient Waiting Room, entrance under the green pavilion located off [facility], at time __0900am on date _08/08/24 . Planned Procedure Time: __1100am .? Time changes happen often and if your time is changed the preop area will call you the afternoon before. - You and your visitor will be asked to self-screen and do not enter if you have any COVID symptoms. Please call surgeon if you need to reschedule. - A mask is optional within the hospital at this time. Patients may have clear liquids (water, carbonated beverages, clear teas, apple juice) until 3 hours prior to surgery with a maximum of 20 ounces. - No food from midnight until time of surgery and no smoking, or chewing tobacco (or any form of nicotine). No chewing gum, candy or mints. ( 0800am) Take only the following medications with a SIP of water on the morning of surgery: Metoprolol, Inhalers, and Paroxetine , Tylenol if needed DO NOT STOP ANY OF YOUR OTHER PRESCRIPTION MEDICATIONS PRIOR TO SURGERY EXCEPT THE FOLLOWING Hold all vitamins and supplements for 3 days per anesthesiologist. Date of last dose is 08/04/24 Medications to discontinue per physician ____Pt to verify with Dr Larios regarding Baby Aspirin instructions Date to take last dose Pending Please no make-up, nail citizen of [place], hairspray, perfume, deodorant, or body powder the day of surgery.? No jewelry (including any body piercings) or valuables the day of surgery, leave them at home.? Please take a shower or bath the night before, or the morning of, surgery with an antibacterial soap.? ( (GOLD DIAL) Wear comfortable, loose fitting clothing.? - Jewelry must be removed prior to entering the operating room.? Rings and piercings that are not removed may be cut off. - The hospital will not accept responsibility for valuables.? - Please leave all valuables, including medications, at home the day of surgery. If you are going home after surgery, a licensed garbage truck driver must drive you home.? - NO public transportation without another adult if you receive anesthesia. - We recommend that an adult stay with you for 24 hours following discharge. - We also recommend that you do not drive, make important decision, drink alcoholic beverages, or take any drugs that were not prescribed by your health care provider for at least 24 hours after your discharge time. Follow any additional instructions given to you from your surgeon. Telephone instructions given to __Patient and asked if any additional questions and then verbalized understanding. Patient advised to call surgeon office or pre surgery nurse liaison [phone] if any additional questions.
--- NOTE | 2024-08-08 08:08 | WPDHPUPDATE1 ---
History and Physical Update Update Date/Time: 08/08/24 08:08 History and Physical has been reviewed, including an updated exam of the patient. There are NO changes in the patient's condition. Risks, benefits, and alternatives have been discussed and questions answered. Patient agrees to proceed with procedure.
--- NOTE | 2024-08-08 08:08 | PM.HPGS ---
History of Present Illness History of Present Illness Consent: Risks, benefits, and alternatives have been discussed and questions answered. Patient agrees to proceed with procedure. Chief complaint: post menopausal bleeding Narrative: Melita Durán is a 68 year old female with postmenopausal bleeding. Options were reviewed and plan to proceed with D&C hysteroscopy. Risks of infection bleeding, perforation, and possible pathology are discussed. Patient voices understanding and agrees to proceed. Review of Systems Review of Systems: not repeated day of surgery; patient states no changes in status PMFSH Past Medical History Medical History (Updated 08/08/24 @ 08:14 by Mell Larios MD) (normal spontaneous vaginal delivery) X3 Hyperlipidemia Adenomatous colon polyp Family history of colon cancer in mother Arthritis HTN (hypertension) Gastroesophageal reflux disease Mild asthma Surgical History Surgical History (Updated 08/08/24 @ 08:13 by Mell Larios MD) Status post left oophorectomy 2014 the patient was unsure side but believes it was the left due to cyst Status post carpal tunnel release of both wrists Status post total knee replacement, left Status post urethral surgery History sling x2 S/P cervical spinal fusion C3-4 fusion S/P rotator cuff surgery Bilateral Family History Family History Other Carcinoma of colon Social History Social History Social History: Caffeine-none Smoking packs per day: 0.5 Smoking cigarettes per day: 10.0 Years smoked: 20 Smoking pack-years: 10.00 Smoking status: Former smoker Tobacco type: cigarettes Smoking end date: 02/16/87 Alcohol intake: current Drinks per week: 14 Alcohol use details: 2 Vodka per day Substance use: never Substance use type: does not use Lack of Transportation: No Lack of Food: Never True Current Housing: I Have Housing Concerned About Future Housing: No Difficulty Paying Gas/Electric Bills: No Difficulty Paying for Meds: No Currently Unemployed: No Education: Trade/Vocational Certificate Difficulty w/ Childcare or Family Care: No Living arrangements: with family Additional living arrangements comments: Spiritual care concerns: No Meds Home Medications and Allergies Home Medications ?Medication ?Instructions ?Recorded ?Confirmed ?Type aspirin 81 mg tablet,delayed 81 mg PO DAILY 03/08/19 08/02/24 History release magnesium oxide 400 mg PO DAILY 03/08/19 08/02/24 History multivitamin with iron-mineral 1 tablet PO DAILY 03/08/19 08/02/24 History ergocalciferol (vitamin D2) 1,250 1,250 mcg PO WEEKLY 03/12/21 08/02/24 History mcg (50,000 unit) capsule metoprolol succinate 25 mg 25 mg PO DAILY 11/22/21 08/02/24 History tablet,extended release 24 hr paroxetine HCl 10 mg tablet 10 mg PO DAILY 11/22/21 08/02/24 History fluticasone propionate 50 1 spray intranasal DAILY 06/02/22 08/02/24 History mcg/actuation nasal spray,suspension loratadine 10 mg tablet 10 mg PO DAILY 06/02/22 08/02/24 History losartan 100 1 tablet PO DAILY 06/24/22 08/02/24 History mg-hydrochlorothiazide 25 mg tablet albuterol sulfate 90 mcg/actuation 1 - 2 puff inhalation Q4-6H PRN 11/19/22 08/02/24 Rx aerosol inhaler shortness of breath or wheezing #8.5 grams omeprazole 20 mg capsule,delayed 20 mg PO DAILY 01/05/23 08/02/24 History release Trelegy Ellipta 100 mcg-62.5 1 inh inhalation DAILY #180 ea 09/30/23 08/02/24 Rx mcg-25 mcg powder for inhalation (iphcbuofkcr-hwyajmagr-zjfwfjfh) ezetimibe 10 mg tablet 10 mg PO DAILY 08/02/24 08/02/24 History progesterone micronized 100 mg 100 mg PO QPM 08/02/24 08/02/24 History capsule rosuvastatin 5 mg tablet 5 mg PO DAILY 08/02/24 08/02/24 History Allergies Allergy/AdvReac Type Severity Reaction Status Date / Time latex AdvReac Redness of Verified 08/02/24 08:38 Skin Exam Const: General: healthy appearing and alert Orientation/consciousness: patient oriented x3 Resp: Effort & Inspection: normal respiratory effort : External Female Exam: normal external appearance Speculum Exam - Vagina: normal appearance of the vagina and vaginal bleeding Speculum Exam - Cervix: normal appearance of the cervix Bimanual exam- vagina & uterus: uterine size normal and consistency normal Bimanual Exam- Adnexa, other: normal adnexae and No adnexal tenderness Neuro: General: patient oriented x3 Assessment and Plan Assessment and plan (1) Post-menopausal bleeding: Code(s): N95.0 - Postmenopausal bleeding Status: Acute Assessment and Plan: Plan to proceed with D&C hysteroscopy
--- NOTE | 2024-08-08 09:21 | P.PNAN_ITS ---
Anes - Initial Pre Proc Eval Procedure: Operation Date: 08/08/24 11:00 Proposed Procedures p Hysteroscopy Dilation and Curettage - Mell Larios MD Date/Time: 08/08/24 09:21 Surgeon: Mell Larios MD Pre Op Diagnosis: post menopausal bleeding Patient Data Age: 68 Gender: F Height: 1.7 m Weight: 86 kg Allergies Allergy/AdvReac Type Severity Reaction Status Date / Time latex AdvReac Redness of Verified 08/02/24 08:38 Skin Home Medications ?Medication ?Instructions ?Recorded ?Confirmed ?Type aspirin 81 mg tablet,delayed 81 mg PO DAILY 03/08/19 08/02/24 History release magnesium oxide 400 mg PO DAILY 03/08/19 08/02/24 History multivitamin with iron-mineral 1 tablet PO DAILY 03/08/19 08/02/24 History ergocalciferol (vitamin D2) 1,250 1,250 mcg PO WEEKLY 03/12/21 08/02/24 History mcg (50,000 unit) capsule metoprolol succinate 25 mg 25 mg PO DAILY 11/22/21 08/02/24 History tablet,extended release 24 hr paroxetine HCl 10 mg tablet 10 mg PO DAILY 11/22/21 08/02/24 History fluticasone propionate 50 1 spray intranasal DAILY 06/02/22 08/02/24 History mcg/actuation nasal spray,suspension loratadine 10 mg tablet 10 mg PO DAILY 06/02/22 08/02/24 History losartan 100 1 tablet PO DAILY 06/24/22 08/02/24 History mg-hydrochlorothiazide 25 mg tablet albuterol sulfate 90 mcg/actuation 1 - 2 puff inhalation Q4-6H PRN 11/19/22 08/02/24 Rx aerosol inhaler shortness of breath or wheezing #8.5 grams omeprazole 20 mg capsule,delayed 20 mg PO DAILY 01/05/23 08/02/24 History release Trelegy Ellipta 100 mcg-62.5 1 inh inhalation DAILY #180 ea 09/30/23 08/02/24 Rx mcg-25 mcg powder for inhalation (idbyfftdrmc-dkzxhluzc-kiixomhi) ezetimibe 10 mg tablet 10 mg PO DAILY 08/02/24 08/02/24 History progesterone micronized 100 mg 100 mg PO QPM 08/02/24 08/02/24 History capsule rosuvastatin 5 mg tablet 5 mg PO DAILY 08/02/24 08/02/24 History Patient hx anesthesia problems: none Family hx anesthesia problems: none Results Review: All pre-operative results and documents have been reviewed as part of the pre- operative evaluation. [facility] Past Medical History Medical History (Updated 08/08/24 @ 08:14 by Mell Larios MD) (normal spontaneous vaginal delivery) X3 Hyperlipidemia Adenomatous colon polyp Family history of colon cancer in mother Arthritis HTN (hypertension) Gastroesophageal reflux disease Mild asthma Surgical History Surgical History (Updated 08/08/24 @ 08:13 by Mell Larios MD) Status post left oophorectomy 2014 the patient was unsure side but believes it was the left due to cyst Status post carpal tunnel release of both wrists Status post total knee replacement, left Status post urethral surgery History sling x2 S/P cervical spinal fusion C3-4 fusion S/P rotator cuff surgery Bilateral Family History Family History Other Carcinoma of colon Social History Social History Social History: Caffeine-none Smoking packs per day: 0.5 Smoking cigarettes per day: 10.0 Years smoked: 20 Smoking pack-years: 10.00 Smoking status: Former smoker Tobacco type: cigarettes Smoking end date: 02/16/87 Alcohol intake: current Drinks per week: 14 Alcohol use details: 2 Vodka per day Substance use: never Substance use type: does not use Lack of Transportation: No Lack of Food: Never True Current Housing: I Have Housing Concerned About Future Housing: No Difficulty Paying Gas/Electric Bills: No Difficulty Paying for Meds: No Currently Unemployed: No Education: Trade/Vocational Certificate Difficulty w/ Childcare or Family Care: No Living arrangements: with family Additional living arrangements comments: Spiritual care concerns: No Anes - Eval Final PreProcedure Day of Procedure 08/08/24 09:21 Patient weight: overweight Heart: regular rate and rhythm Lungs: clear to auscultation Airway: Mallampati scale class II Neurological: alert and oriented Last oral intake: >/= 8 hours ASA classification: III Emergent: no Anesthetic plan: proceed Anesthesia type and monitoring: general GIVS and standard monitoring Results Review: All pre-operative results and documents have been reviewed as part of the pre- operative evaluation. Informed Consent: The patient's anesthetic plan and its attendant risks and benefits were discussed with the patient/family/POA. Questions were solicited and answers provided to the satisfaction of the patient/family/POA.
[2024-08-08 09:30] VITALS: BP 140/67; PULSE 69; RESP 14; TEMP 37.2; O2SAT 97
[2024-08-08] MEDS: LACTATED RINGERS 1,000 ML 30 ML IV CONT (09:30)
[2024-08-08] MEDS: ACETAMINOPHEN 500 MG TABLET 1000 MG PO (09:30)
--- NOTE | 2024-08-08 10:31 | S_PTH ---
PATIENT: Melita Durán LOC: [facility]#:[id number] AGE/SX: 68/F ROOM: RE08/08/[address]: Mell Larios MD : [id number] BED: DIS: 08/08/2024 SPEC #: [id number] RECD: 08/08/24 13:21 STATUS: [place] REQ #: [id number] SAROJ: 08/08/24 10:[address]: Mell Larios DEPT: [facility] Surgical RECD BY: Amna Barber ENTERED: 08/08/24 13:21 SP TYPE: Surgical OTHR DR: Jose Martins MD Tissues: A - Endometrial Curettings Procedures: Hematoxylin and Eosin Stain Gross and Microscopic Level 4
[2024-08-08] MEDS: KETOROLAC 15 MG/ML VIAL (*BKC) IV PUSH (10:32)
--- NOTE | 2024-08-08 10:35 | W.PM.PROC2 ---
Procedure Note - Detailed Date of Procedure 08/08/24 Pre-op Diagnosis post menopausal bleeding Post-op Diagnosis Same Procedure Performed D&C hysteroscopy Surgeon Mell Larios MD Anesthesia MAC Findings Uterus sounds to 9cm and appears grossly atrophic Description of Procedure The patient is taken to the operating room and placed under anesthesia in the dorsal lithotomy position. She was prepped and draped in usual sterile technique. [place] speculum was placed in the vagina and the cervix was grasped on the anterior lip with a tenaculum. The uterus is sounded to 9cm. The diagnostic hysteroscope was placed and no abnormalities were noted. Hysteroscope was then removed. The sharp curette was used to curette the endometrium until a good uterine cry was noted in all areas. All instruments were then removed. Sponge, needle, and instrument counts are correct per the OR staff. The patient was awakened from anesthesia and taken to recovery in stable condition. Estimated Blood Loss 5 Drains No Packing No Pathology Yes (Endometrial curettings) Complications No immediate complications Condition Stable Disposition PACU
[2024-08-08 10:38] VITALS: BP 126/55; PULSE 58; RESP 14; O2SAT 99
[2024-08-08 10:45] VITALS: O2SAT 99
[2024-08-08 11:05] VITALS: BP 129/69; PULSE 60; RESP 14
== END 2024-08-08 11:25 | disposition home or self-care (01) ==
PROVIDERS: PCP Family Medicine; Visit Provider Obstetrics & Gynecology Gynecology
PROC: 0U5B8ZZ Destruction of Endometrium, Via Natural or Artificial Opening Endoscopic (ICD-10-PCS; CPT 58563; principal; 2024-08-08 11:00)
DX: N95.0 Postmenopausal bleeding (principal); N85.8 Other specified noninflammatory disorders of uterus; Z87.891 Personal history of nicotine dependence
CPT/HCPCS: 58558; 88305; A9270; J1100; J1885; J2003; J2405; J2704; J3010; J7120